=== PATIENT | male | born 1990 | race Two or more races ===

== ENCOUNTER 2020-05-30 21:57 | Emergency (ER) | payer MEDICAID, OTHER ==
[~2020-05-30] VITALS: Ht 170.2 cm; Wt 65.8 kg
[2020-05-30 23:52] LABS: Basophils # (auto) 0 10 ^3/uL (0-0.2); Basophils % (auto) 0.5 % (0.0-2.0); Eosinophils # (auto) 0 10 ^3/uL (0-0.8); Eosinophils % (auto) 0.5 % (0.0-7.0); Hematocrit 41.6 % (41.0-53.0); Hemoglobin 14.1 g/dL (13.5-17.5); Lymphocytes # (auto) 1.6 10 ^3/uL (0.4-5.4); Lymphocytes % (auto) 17.7 % (10.0-50.0); Mean Corpuscular Hemoglobin 29.6 pg (28.0-32.0); Mean Corpuscular Hgb Conc. 33.9 g/dL (32.0-36.0); Mean Corpuscular Volume 87.5 fL (80.0-100.0); Monocytes # (auto) 0.5 10 ^3/uL (0-1.3); Monocytes % (auto) 6.2 % (0.0-12.0); Neutrophils # (auto) 6.6 10 ^3/uL (1.6-8.6); Neutrophils % (auto) 75.1 % (37.0-80.0); Nucleated Red Blood Cells % 0.1 %; Platelet Count (auto) 279 10^3/uL (140-450); Red Blood Cells 4.75 10^6/uL (4.5-5.90); Red Cell Distribution Width 13.4 % (11.8-14.3); White Blood Cell 8.8 10^3/uL (4.4-10.8)
[2020-05-31 00:12] LABS: Salicylate < 1.7 mg/dL (2.8-20.0)
[2020-05-31 00:13] LABS: Chloride 105 mmol/L (98-107); Sodium 137 mmol/L (136-145)
[2020-05-31 00:14] LABS: Acetaminophen < 2.0 ug/mL (10-30)
[2020-05-31 00:17] LABS: Alanine Aminotransferase 58 U/L (16-61); Anion Gap 6 (5-15); Aspartate Aminotransferase 36 U/L (15-37); Blood Alcohol < 3.0 mg/dL (0-5); Blood Urea Nitrogen 20 mg/dL (7-18); Calcium 8.4 mg/dL (8.5-10.1); Carbon Dioxide 26 mmol/L (21-32); GFR African American 127 mL/min; GFR Non-African American 105 mL/min; Glucose 109 mg/dL (74-106); Magnesium 2.4 mg/dL (1.6-2.6)
[2020-05-31 00:19] LABS: Alkaline Phosphatase 80 U/L (45-117); Bilirubin, Total 0.4 mg/dL (0.2-1.0); Total Protein 7.6 g/dL (6.4-8.2)
[2020-05-31 03:12] VITALS: BP 111/76
== END 2020-05-31 05:49 | disposition left against medical advice (07) ==
LOC: EDBD 21:57 → ER 22:02
DX: F15.90 Other stimulant use, unspecified, uncomplicated (principal); Z53.21 Procedure and treatment not carried out due to patient leaving prior to being seen by health care provider
CPT/HCPCS: 36415; 80053; 80320; 80329; 83735; 85025

== ENCOUNTER 2021-08-07 20:33 | Emergency (ER) | payer MEDICAID ==
[~2021-08-07] VITALS: Ht 170.2 cm; Wt 56.2 kg
[2021-08-07] MEDS ORDERED: ONDANSETRON HCL 4 MG/2 ML VIAL IV ONE (21:30)
[2021-08-07] MEDS ORDERED: ACETAMINOPHEN 325 MG TAB PO ONE (21:30)
[2021-08-07] MEDS ORDERED: SODIUM CHLORIDE 0.9% 1,000 ML IV ONE (21:30)
[2021-08-07] MEDS ORDERED: HYDROmorphone HCL 2 MG/ML VL/or syr IV ONE (21:45)
[2021-08-07 23:18] LABS: Basophils # (auto) 0.1 10 ^3/uL (0-0.2); Basophils % (auto) 1.7 % (0.0-2.0); Eosinophils # (auto) 0 10 ^3/uL (0-0.8); Eosinophils % (auto) 0.6 % (0.0-7.0); Hematocrit 24.3 % (41.0-53.0); Hemoglobin 7.8 g/dL (13.5-17.5); Lymphocytes # (auto) 0.5 10 ^3/uL (0.4-5.4); Lymphocytes % (auto) 6.4 % (10.0-50.0); Mean Corpuscular Hemoglobin 21.5 pg (28.0-32.0); Mean Corpuscular Hgb Conc. 32.1 g/dL (32.0-36.0); Mean Corpuscular Volume 66.8 fL (80.0-100.0); Monocytes # (auto) 0.3 10 ^3/uL (0-1.3); Monocytes % (auto) 4.7 % (0.0-12.0); Neutrophils # (auto) 6.1 10 ^3/uL (1.6-8.6); Neutrophils % (auto) 86.6 % (37.0-80.0); Red Blood Cells 3.63 10^6/uL (4.5-5.90); Red Cell Distribution Width 18.5 % (11.8-14.3); White Blood Cell 7.1 10^3/uL (4.4-10.8)
[2021-08-07 23:27] LABS: Urine WBC None Seen /hpf (0 - 3)
[2021-08-07 23:38] LABS: Albumin 2.4 g/dL (3.4-5.0); Potassium 3.9 mmol/L (3.5-5.1)
[2021-08-07 23:48] LABS: BUN/Creatinine Ratio 13.2; Bilirubin, Total 0.2 mg/dL (0.2-1.0); Total Protein 7.2 g/dL (6.4-8.2)
[2021-08-08 00:06] LABS: Urine Bacteria NONE SEEN /hpf (None Seen); Urine Blood Negative /uL (Negative); Urine Specific Gravity 1.005 (1.001-1.035)
[2021-08-08] MEDS ORDERED: HYDROmorphone HCL 2 MG/ML VL/or syr IV ONE ×2 (02:45→07:15)
[2021-08-08] MEDS ORDERED: PIPERACILLIN-TAZO 4.5GM 100 ML IV ONE (05:45)
[2021-08-08] MEDS ORDERED: VANCOMYCIN 1GM/250ML 250 ML IV ONE (05:45)
[2021-08-08] MEDS ORDERED: ONDANSETRON HCL 4 MG/2 ML VIAL IV ONE (07:15)
[2021-08-08 10:12] VITALS: BP 99/67
== END 2021-08-08 10:18 | disposition left against medical advice (07) ==
LOC: ER 20:33
DX: A41.9 Sepsis, unspecified organism (principal); K56.600 Partial intestinal obstruction, unspecified as to cause; J90 Pleural effusion, not elsewhere classified; M86.8X9 Other osteomyelitis, unspecified sites; Z20.822 Contact with and (suspected) exposure to COVID-19
CPT/HCPCS: 36415; 71045; 74176; 80053; 81001; 83605; 83690; 84484; 85025; 87040; 87077; 87086; 87186; 87426; 93005; 96361; 96365; 96375; 96376; 99291; J1170; J2405; J3370; J7030

== ENCOUNTER 2022-02-05 21:27 | Emergency (ER) | payer MEDICAID ==
[~2022-02-05] VITALS: Ht 170.2 cm; Wt 60.0 kg
[2022-02-05 22:13] LABS: Basophils # (auto) 0 10 ^3/uL (0-0.2); Basophils % (auto) 0.6 % (0.0-2.0); Eosinophils # (auto) 0.1 10 ^3/uL (0-0.8); Hematocrit 23.3 % (41.0-53.0); Hemoglobin 7.3 g/dL (13.5-17.5); Lymphocytes # (auto) 0.5 10 ^3/uL (0.4-5.4); Lymphocytes % (auto) 11.5 % (10.0-50.0); Mean Corpuscular Hemoglobin 23.7 pg (28.0-32.0); Mean Corpuscular Hgb Conc. 31.6 g/dL (32.0-36.0); Mean Corpuscular Volume 74.9 fL (80.0-100.0); Monocytes # (auto) 0.4 10 ^3/uL (0-1.3); Monocytes % (auto) 11.4 % (0.0-12.0); Neutrophils # (auto) 2.9 10 ^3/uL (1.6-8.6); Neutrophils % (auto) 74.5 % (37.0-80.0); Nucleated Red Blood Cells % 0.2 %; Red Cell Distribution Width 19.2 % (11.8-14.3); White Blood Cell 3.9 10^3/uL (4.4-10.8)
[2022-02-05 22:54] LABS: BUN/Creatinine Ratio 19.7; Potassium 3.8 mmol/L (3.5-5.1)
[2022-02-05 22:55] LABS: Albumin 2.2 g/dL (3.4-5.0); Bilirubin, Total 0.2 mg/dL (0.2-1.0); Calcium 8.1 mg/dL (8.5-10.1); Total Protein 6.6 g/dL (6.4-8.2)
[2022-02-06] VITALS (7 sets, daily range): BP systolic 110–126; BP diastolic 56–77
[2022-02-06] MEDS ORDERED: ONDANSETRON HCL 4 MG/2 ML VIAL IV ONE (03:15)
[2022-02-06] MEDS ORDERED: HYDROmorphone HCL 2 MG/ML VL/or syr IV ONE ×2 (03:15→07:30)
[2022-02-06] MEDS ORDERED: CEPH-322 PO (04:19)
[2022-02-06] MEDS ORDERED: ONDA-144 PO (04:19)
[2022-02-06] MEDS ORDERED: PERCOT PO (04:19)
== END 2022-02-06 08:47 | disposition home or self-care (01) ==
LOC: ER 21:27
DX: D64.9 Anemia, unspecified (principal)
CPT/HCPCS: 36415; 36430; 80053; 85025; 86850; 86900; 86901; 86920; 96374; 96375; 96376; 99285; J1170; J2405; J7030; P9016

== ENCOUNTER 2022-03-08 12:28 | Emergency (ER) | payer MEDICAID ==
[~2022-03-08] VITALS: Ht 172.7 cm; Wt 59.1 kg
[~2022-03-08 12:28] MED LIST: CEPH-322 PO; ONDA-144 PO; PERCOT PO
[2022-03-08 13:34] LABS: Basophils # (auto) 0.1 10 ^3/uL (0-0.2); Basophils % (auto) 0.8 % (0.0-2.0); Eosinophils # (auto) 0.1 10 ^3/uL (0-0.8); Monocytes # (auto) 0.6 10 ^3/uL (0-1.3); Red Cell Distribution Width 18.4 % (11.8-14.3)
[2022-03-08 13:36] LABS: Eosinophils % (auto) 1.8 % (0.0-7.0); Hematocrit 20.3 % (41.0-53.0); Lymphocytes # (auto) 1.3 10 ^3/uL (0.4-5.4); Lymphocytes % (auto) 21.1 % (10.0-50.0); Mean Corpuscular Hemoglobin 24.3 pg (28.0-32.0); Mean Corpuscular Hgb Conc. 31.6 g/dL (32.0-36.0); Mean Corpuscular Volume 76.9 fL (80.0-100.0); Monocytes % (auto) 8.9 % (0.0-12.0); Neutrophils # (auto) 4.2 10 ^3/uL (1.6-8.6); Neutrophils % (auto) 67.4 % (37.0-80.0); Nucleated Red Blood Cells % 0.1 %; Red Blood Cells 2.64 10^6/uL (4.5-5.90); White Blood Cell 6.3 10^3/uL (4.4-10.8)
[2022-03-08 13:49] LABS: Albumin 2.2 g/dL (3.4-5.0); BUN/Creatinine Ratio 21.5; Calcium 8.1 mg/dL (8.5-10.1); Potassium 4.2 mmol/L (3.5-5.1)
[2022-03-08 13:52] LABS: Bilirubin, Total 0.1 mg/dL (0.2-1.0); Total Protein 6.2 g/dL (6.4-8.2)
[2022-03-08 13:56] LABS: Hemoglobin 6.4 g/dL (13.5-17.5)
[2022-03-08] MEDS ORDERED: IOHEXOL 300 MG/ML 100ML BOTTLE IJ ONE (15:32)
[2022-03-08] MEDS ORDERED: ACETAMINOPHEN 325 MG TAB PO ONE (17:45)
[2022-03-08] MEDS ORDERED: HYDROmorphone HCL 2 MG/ML VL/or syr IV ONE (21:00)
[2022-03-08 23:38] VITALS: BP 116/63
[2022-03-08 23:52] VITALS: BP 116/56
[2022-03-09] MEDS ORDERED: HYDROmorphone HCL 2 MG/ML VL/or syr IV ONE (00:15)
[2022-03-09 00:36] VITALS: BP 107/54
[2022-03-09 01:37] VITALS: BP 105/48
[2022-03-09 02:13] VITALS: BP 95/51
[2022-03-09 02:18] VITALS: BP 95/51
== END 2022-03-09 04:13 | disposition left against medical advice (07) ==
LOC: ER 12:28
DX: D64.9 Anemia, unspecified (principal); K92.2 Gastrointestinal hemorrhage, unspecified; L02.211 Cutaneous abscess of abdominal wall; L02.91 Cutaneous abscess, unspecified
CPT/HCPCS: 36415; 36430; 74177; 80053; 85025; 86850; 86900; 86901; 86920; 96374; 96376; 99285; J1170; P9016; Q9967

== ENCOUNTER 2022-10-09 17:24 | Emergency (ER) | payer MEDICAID ==
[~2022-10-09] VITALS: Ht 172.7 cm; Wt 59.1 kg
[~2022-10-09 17:24] MED LIST changes: -CEPH-322 PO; +CEPH250C PO
[2022-10-09 18:08] LABS: Basophils # (auto) 0 10 ^3/uL (0-0.2); Eosinophils # (auto) 0.1 10 ^3/uL (0-0.8); Hemoglobin 10.2 g/dL (13.5-17.5); Mean Corpuscular Hemoglobin 21.8 pg (28.0-32.0); Mean Corpuscular Volume 68.3 fL (80.0-100.0); Monocytes # (auto) 0.9 10 ^3/uL (0-1.3); Neutrophils # (auto) 4.2 10 ^3/uL (1.6-8.6); Nucleated Red Blood Cells % 0.1 %; White Blood Cell 6.4 10^3/uL (4.4-10.8)
[2022-10-09 18:10] LABS: Basophils % (auto) 0.6 % (0.0-2.0); Eosinophils % (auto) 2.2 % (0.0-7.0); Lymphocytes # (auto) 1.1 10 ^3/uL (0.4-5.4); Lymphocytes % (auto) 17.8 % (10.0-50.0); Mean Corpuscular Hgb Conc. 31.9 g/dL (32.0-36.0); Monocytes % (auto) 13.9 % (0.0-12.0); Neutrophils % (auto) 65.5 % (37.0-80.0); Red Blood Cells 4.69 10^6/uL (4.5-5.90); Red Cell Distribution Width 16.8 % (11.8-14.3)
[2022-10-09 18:26] LABS: Albumin 2.6 g/dL (3.4-5.0); BUN/Creatinine Ratio 13.3 (10.0-20.0); Calcium 8.4 mg/dL (8.5-10.1); Potassium 4.1 mmol/L (3.5-5.1)
[2022-10-09 18:29] LABS: Bilirubin, Total 0.4 mg/dL (0.2-1.0); Total Protein 6.9 g/dL (6.4-8.2)
[2022-10-09] MEDS ORDERED: HYDROmorphone HCL 2 MG/ML VL/or syr IM ONE ×2 (18:45→22:45)
[2022-10-09] MEDS ORDERED: SODIUM CHLORIDE 0.9% 1,000 ML IV ONE (20:00)
[2022-10-09 20:05] VITALS: TEMP 98.5; O2SAT 98
[2022-10-09 22:16] LABS: Urine Amorphous Crystal FEW /hpf (None Seen); Urine Bacteria NONE SEEN /hpf (None Seen); Urine Blood Negative /uL (Negative); Urine Clarity HAZY (Clear); Urine Color Yellow (Yellow); Urine Protein, UAD Negative (Negative); Urine Specific Gravity 1.014 (1.001-1.035); Urine WBC 2 /hpf (0 - 3); Urine pH 7.5 (5.0-8.0)
[2022-10-09] MEDS ORDERED: IBUP-1454 PO (22:53)
[2022-10-09] MEDS ORDERED: CEPH250C PO (22:53)
[2022-10-09 23:11] VITALS: BP 101/57; PULSE 87; RESP 16
== END 2022-10-09 23:14 | disposition home or self-care (01) ==
LOC: ER 17:24
DX: G89.18 Other acute postprocedural pain (principal); R10.84 Generalized abdominal pain; L08.9 Local infection of the skin and subcutaneous tissue, unspecified; Z86.2 Personal history of diseases of the blood and blood-forming organs and certain disorders involving the immune mechanism; Z79.899 Other long term (current) drug therapy
CPT/HCPCS: 36415; 80053; 81001; 83605; 84484; 85025; 87040; 93005; 96360; 96361; 96372; 99284; J1170; J7030

== ENCOUNTER 2022-11-20 22:01 | Emergency (ER) | payer MEDICAID ==
[~2022-11-20] VITALS: Ht 170.2 cm; Wt 59.0 kg
[~2022-11-20 22:01] MED LIST changes: +IBUP-1454 PO
[2022-11-20 22:33] VITALS: BP 109/64; PULSE 97; RESP 18; O2SAT 98
[2022-11-21] MEDS ORDERED: D5W/LACTATED RINGERS 1,000 ML IV ONE (02:00)
== END 2022-11-21 02:15 | disposition left against medical advice (07) ==
LOC: ER 22:01
DX: T82.594A Other mechanical complication of infusion catheter, initial encounter (principal)
CPT/HCPCS: 71045

== ENCOUNTER 2023-03-01 22:40 | Emergency (ER) | payer MEDICAID ==
[~2023-03-01] VITALS: Ht 172.7 cm; Wt 64.5 kg
[2023-03-01 23:12] VITALS: BP 134/84; RESP 19; O2SAT 98
[2023-03-01 23:13] VITALS: PULSE 129
[2023-03-02 00:01] LABS: Basophils # (auto) 0 10 ^3/uL (0-0.2); Basophils % (auto) 0.7 % (0.0-2.0); Eosinophils # (auto) 0 10 ^3/uL (0-0.8); Eosinophils % (auto) 0.6 % (0.0-7.0); Hematocrit 35.4 % (41.0-53.0); Lymphocytes # (auto) 0.7 10 ^3/uL (0.4-5.4); Lymphocytes % (auto) 11.4 % (10.0-50.0); Mean Corpuscular Hemoglobin 20.5 pg (28.0-32.0); Mean Corpuscular Hgb Conc. 31.1 g/dL (32.0-36.0); Mean Corpuscular Volume 66.1 fL (80.0-100.0); Monocytes # (auto) 0.6 10 ^3/uL (0-1.3); Monocytes % (auto) 10.8 % (0.0-12.0); Neutrophils # (auto) 4.6 10 ^3/uL (1.6-8.6); Neutrophils % (auto) 76.5 % (37.0-80.0); Red Blood Cells 5.36 10^6/uL (4.5-5.90)
[2023-03-02 00:02] LABS: Red Cell Distribution Width 24.3 % (11.8-14.3)
[2023-03-02 00:09] LABS: Alanine Aminotransferase 76 U/L (7-40); Albumin 4.5 g/dL (3.2-4.8); Alkaline Phosphatase 163 U/L (46-116); Anion Gap 11 (5-15); Aspartate Aminotransferase 58 U/L (13-40); BUN/Creatinine Ratio 20.7 (10.0-20.0); Bilirubin, Total 0.6 mg/dL (0.2-1.0); Blood Urea Nitrogen 17 mg/dL (9-23); Calcium 9.1 mg/dL (8.7-10.4); Carbon Dioxide 19 mmol/L (20-30); Chloride 105 mmol/L (98-107); Glucose 95 mg/dL (74-106); Lipase 50 U/L (12-53); Potassium 3.2 mmol/L (3.5-5.1); Sodium 135 mmol/L (136-145); Total Protein 8.6 g/dL (5.7-8.2)
[2023-03-02] MEDS ORDERED: METOCLOPRAMIDE HCL 5MG/ml INJ 2ml VIAL IV ONE (00:45)
[2023-03-02] MEDS ORDERED: HYDROmorphone HCL 2 MG/ML VL/or syr IV ONE (00:45)
[2023-03-02 00:52] LABS: Platelet Estimate Adequate
[2023-03-02 00:53] LABS: Anisocytosis Moderate; Hypochromia Marked
[2023-03-02 00:55] LABS: Ovalocytes FEW
[2023-03-02 00:56] LABS: Large Platelets FEW
[2023-03-02 00:57] LABS: Stomatocytes Few
[2023-03-02 04:52] LABS: Urine Bacteria NONE SEEN /hpf (None Seen); Urine Blood Negative /uL (Negative); Urine Clarity HAZY (Clear); Urine Color Colorless (Yellow); Urine Protein, UAD Negative (Negative); Urine Urobilinogen Normal (Negative); Urine WBC 121 /hpf (0 - 3); Urine WBC Clumps PRESENT /hpf (None Seen)
== END 2023-03-02 03:42 | disposition home or self-care (01) ==
LOC: ER 22:40
DX: R10.13 Epigastric pain (principal); Z86.2 Personal history of diseases of the blood and blood-forming organs and certain disorders involving the immune mechanism; Z79.1 Long term (current) use of non-steroidal anti-inflammatories (NSAID); Z79.899 Other long term (current) drug therapy
CPT/HCPCS: 36415; 80053; 81001; 83605; 83690; 85025; 87040; 93005

== ENCOUNTER 2023-06-03 18:29 | Emergency (ER) | payer MEDICAID ==
[~2023-06-03] VITALS: Ht 172.7 cm; Wt 59.0 kg
[2023-06-03 19:26] LABS: Basophils # (auto) 0 10 ^3/uL (0-0.2); Basophils % (auto) 0.2 % (0.0-2.0); Eosinophils # (auto) 0 10 ^3/uL (0-0.8); Eosinophils % (auto) 0.5 % (0.0-7.0); Hematocrit 23.1 % (41.0-53.0); Lymphocytes # (auto) 0.9 10 ^3/uL (0.4-5.4); Mean Corpuscular Hgb Conc. 31.4 g/dL (32.0-36.0); Neutrophils % (auto) 82.9 % (37.0-80.0); Red Blood Cells 3.29 10^6/uL (4.5-5.90)
[2023-06-03 19:28] LABS: Hemoglobin 7.2 g/dL (13.5-17.5); Lymphocytes % (auto) 11.2 % (10.0-50.0); Mean Corpuscular Volume 70.2 fL (80.0-100.0); Monocytes # (auto) 0.4 10 ^3/uL (0-1.3); Monocytes % (auto) 5.2 % (0.0-12.0); Neutrophils # (auto) 6.8 10 ^3/uL (1.6-8.6); Red Cell Distribution Width 20.9 % (11.8-14.3); White Blood Cell 8.2 10^3/uL (4.4-10.8)
[2023-06-03 19:42] LABS: Alanine Aminotransferase 19 U/L (7-40); Albumin 3.1 g/dL (3.2-4.8); Alkaline Phosphatase 120 U/L (46-116); Anion Gap 7 (5-15); Aspartate Aminotransferase 16 U/L (13-40); BUN/Creatinine Ratio 22.2 (10.0-20.0); Blood Urea Nitrogen 12 mg/dL (9-23); Calcium 8.4 mg/dL (8.7-10.4); Carbon Dioxide 23 mmol/L (20-30); Chloride 110 mmol/L (98-107); Glucose 121 mg/dL (74-106); Potassium 4.2 mmol/L (3.5-5.1); Sodium 140 mmol/L (136-145)
[2023-06-03 19:43] LABS: Bilirubin, Total < 0.2 mg/dL (0.2-1.0); Total Protein 6.1 g/dL (5.7-8.2)
[2023-06-03 21:38] LABS: Erythrocyte Sedimentation Rate 60 mm/hr (0-20)
[2023-06-03] MEDS: MORPHINE SULFATE 4 MG/ML SYR/VIAL IV ONE (23:25)
[2023-06-03] MEDS: ONDANSETRON HCL 4 MG/2 ML VIAL IV ONE (23:26)
[2023-06-03 23:30] VITALS: O2SAT 100
[2023-06-03 23:52] VITALS: BP 108/60; PULSE 100; RESP 12
== END 2023-06-04 03:16 | disposition left against medical advice (07) ==
LOC: ER 18:29
DX: M86.60 Other chronic osteomyelitis, unspecified site (principal); T81.40XA Infection following a procedure, unspecified, initial encounter; D64.89 Other specified anemias; G89.18 Other acute postprocedural pain; Z90.49 Acquired absence of other specified parts of digestive tract
CPT/HCPCS: 36415; 74176; 80053; 85025; 85652; 96374; 96375; 99285; J2270; J2405